=== PATIENT | female | born 2000 | race Caucasian/White ===

== ENCOUNTER 2023-01-26 18:55 | Emergency (ER) | payer OTHER, SELFPAY ==
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
[2023-01-26 18:58] VITALS: BP 109/80; BP 140/84; PULSE 109; PULSE 118; RESP 20; TEMP 36.6; O2SAT 97; O2SAT 99; BMI 20.9
[2023-01-26 19:15] VITALS: BP 116/77; PULSE 119; RESP 17; TEMP 36.8; O2SAT 97
[2023-01-26] MEDS: Ibuprofen 600 MG TABLET PO (20:36)
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
[2023-01-26 22:43] VITALS: BP 101/64; PULSE 80; RESP 17; TEMP 37.1; O2SAT 97
== END 2023-01-26 22:46 | disposition home or self-care (01) ==
PROVIDERS: Emergency Provider Emergency Medicine
DX: S80.02XA Contusion of left knee, initial encounter (principal); V43.52XA Car driver injured in collision with other type car in traffic accident, initial encounter; R51.9 Headache, unspecified; M54.2 Cervicalgia; Y93.89 Activity, other specified; Y92.411 Interstate highway as the place of occurrence of the external cause; Y99.9 Unspecified external cause status
CPT/HCPCS: 70450; 72125; 73560; 99284